=== PATIENT | female | born 1980 | race Caucasian/White ===

== ENCOUNTER 2017-04-04 06:25 | Emergency (ER) | payer MEDICAID ==
[~2017-04-04] VITALS: Ht 170.2 cm; Wt 54.5 kg
[2017-04-04 06:28] VITALS: BP 147/74; TEMP 98.2
[2017-04-04 08:18] VITALS: PULSE 95
== END 2017-04-04 08:19 | disposition home or self-care (01) ==
LOC: COL.ER 06:25
DX: J35.8 Other chronic diseases of tonsils and adenoids (principal); J02.9 Acute pharyngitis, unspecified; Z98.51 Tubal ligation status

== ENCOUNTER 2018-01-15 10:43 | Emergency (ER) | payer MEDICAID ==
[~2018-01-15] VITALS: Ht 167.6 cm; Wt 63.6 kg
[2018-01-15 10:58] VITALS: BP 134/83; TEMP 97.9
[2018-01-15] MEDS ORDERED: LIDODERM 5% PATC1 EA TP (11:14)
[2018-01-15] MEDS ORDERED: VISTARIL 2525 MG/CAP PO (11:14)
[2018-01-15 11:28] VITALS: PULSE 76
== END 2018-01-15 11:29 | disposition home or self-care (01) ==
LOC: COL.ER 10:43
DX: M25.511 Pain in right shoulder (principal); F41.9 Anxiety disorder, unspecified; Z98.51 Tubal ligation status; Z88.0 Allergy status to penicillin

== ENCOUNTER 2018-01-20 07:40 | Emergency (ER) | payer MEDICAID ==
[~2018-01-20] VITALS: Ht 167.6 cm; Wt 64.1 kg
[~2018-01-20 07:40] MED LIST: LIDODERM 5% PATC1 EA TP; VISTARIL 2525 MG/CAP PO
[2018-01-20] MEDS ORDERED: LEXAPRO 10MG10 MG PO (07:47)
[2018-01-20 08:07] LABS: BASO % 0.5 % (0.0-2.0); EOS # 0.1 (0.0-0.7); EOS % 0.8 % (0-4.0); GRAN # 4.1 (1.4-6.5); HEMATOCRIT 42.8 % (37.0-47.0); HEMOGLOBIN 14.6 g/dl (12.5-16.0); LYMPH # 2.5 (1.2-3.4); LYMPH % 33.9 % (20.0-51.0); MEAN CELL VOLUME 92 fl (80.0-100.0); MEAN CORPUSCULAR HEMOGLOBIN 31 pg (27.0-31.0); MEAN CORPUSCULAR HGB CONC 34 g/dl (33.0-37.0); MEAN PLATELET VOLUME 11.9 fl (7.4-10.4); MONO # 0.6 (0.1-0.6); MONO % 8.5 % (1.7-9.3); PLATELET COUNT 175 K/mm3 (130-400); RED BLOOD COUNT 4.67 M/mm3 (4.10-5.30); REDCELL DISTRIBUTION WIDTH-CV 12.4 % (11.5-14.5)
[2018-01-20 08:17] LABS: ALANINE AMINOTRANSFERASE 28 U/L (9-52); ALBUMIN 4.5 gm/dL (3.5-5.0); ALKALINE PHOSPHATASE 69 U/L (50-136); ANION GAP 13 mmol/L (7-16); AST,SGOT 18 U/L (15-37); BILIRUBIN,TOTAL 0.7 mg/dL (0.0-1.0); BLOOD UREA NITROGEN 11 mg/dL (7-17); CALCIUM 9.4 mg/dL (8.4-10.2); CARBON DIOXIDE 25 mmol/L (22-30); CHLORIDE 103 mmol/L (98-107); CREATININE, serum 0.75 mg/dL (0.52-1.25); GLUCOSE 112 mg/dL (74-106); LIPASE 129 U/L (23-300); POTASSIUM 3.8 mmol/L (3.4-5.0); SODIUM 141 mmol/L (137-145); TOTAL PROTEIN 8.4 gm/dL (6.4-8.2)
[2018-01-20 08:19] LABS: C-REACTIVE PROTEIN < 0.5 mg/dL (0.0-0.9)
[2018-01-20 08:53] LABS: TROPONIN-I < 0.012 ng/mL (0.000-0.034)
[2018-01-20] MEDS ORDERED: PROTONIX 40MG T40 MG PO (09:09)
[2018-01-20 09:31] VITALS: BP 103/99; PULSE 61; TEMP 97.6
== END 2018-01-20 09:40 | disposition home or self-care (01) ==
LOC: COL.ER 07:40
PROVIDERS: Emergency Medicine
DX: R07.89 Other chest pain (principal); F41.9 Anxiety disorder, unspecified; T43.225A Adverse effect of selective serotonin reuptake inhibitors, initial encounter; K21.9 Gastro-esophageal reflux disease without esophagitis; F32.9 Major depressive disorder, single episode, unspecified

== ENCOUNTER 2018-03-25 15:12 | Emergency (ER) | payer MEDICAID ==
[~2018-03-25] VITALS: Ht 167.6 cm; Wt 64.5 kg
[~2018-03-25 15:12] MED LIST changes: +LEXAPRO 10MG10 MG PO; +PROTONIX 40MG T40 MG PO
[2018-03-25 15:17] VITALS: BP 143/75; TEMP 98.2
[2018-03-25 16:44] VITALS: PULSE 80
== END 2018-03-25 16:44 | disposition home or self-care (01) ==
LOC: COL.ER 15:12
DX: S43.101A Unspecified dislocation of right acromioclavicular joint, initial encounter (principal); F12.90 Cannabis use, unspecified, uncomplicated; Z98.51 Tubal ligation status; Z88.0 Allergy status to penicillin; X58.XXXA Exposure to other specified factors, initial encounter

== ENCOUNTER 2018-08-18 12:28 | Emergency (ER) | payer MEDICAID ==
[~2018-08-18] VITALS: Ht 167.6 cm; Wt 57.4 kg
[2018-08-18 12:32] VITALS: BP 134/75; TEMP 98.4
[2018-08-18 14:04] VITALS: PULSE 54
== END 2018-08-18 14:10 | disposition home or self-care (01) ==
LOC: COL.ER 12:28
DX: M25.511 Pain in right shoulder (principal); F12.90 Cannabis use, unspecified, uncomplicated; Z98.51 Tubal ligation status
CPT/HCPCS: J1885

== ENCOUNTER 2019-01-21 12:01 | Day surgery (SDC) | payer MEDICAID ==
[~2019-01-21] VITALS: Ht 167.6 cm; Wt 59.2 kg
[2019-01-21 12:24] VITALS: BP 118/84; PULSE 61; TEMP 98
[2019-01-21] MEDS ORDERED: KLONOPIN 0.5MG0.5 MG PO (12:24)
[2019-01-21 13:30] VITALS: BP 126/97; PULSE 73; TEMP 98.5
--- NOTE | 2019-01-21 13:30 | NUR ---
Patient returned to [facility]. Able to ambulate to recliner without difficulty. Alert and oriented x4. Vital signs WNL. Denies any nausea or pain. States she would like juice and a muffin. Tolerating well. Call sheehan within reach, will continue to monitor.
[2019-01-21 13:45] VITALS: BP 120/93; PULSE 72
--- NOTE | 2019-01-21 13:45 | NUR ---
Patient tolerating food and drink well. Vital signs WNL. Dr. Arriaga in patients room discussing plan of care. Will continue to monitor.
[2019-01-21 14:00] VITALS: BP 111/77; PULSE 67
--- NOTE | 2019-01-21 14:00 | NUR ---
Patient states she is feeling good and ready to go home. Vital signs WNL. Discharge instructions reviewed. All questions answered. Instructed to follow up with PCP in regards to managing at home medications.
--- NOTE | 2019-01-21 14:24 | NUR ---
Patient ambulated down to lobby with out difficulty. To be driven home by .
[2019-01-22] MEDS ORDERED: PRIL40 PO (10:35)
[2019-01-22] MEDS ORDERED: ZOFRAN 4MG T4 MG/TAB PO (11:03)
== END 2019-01-21 14:24 | disposition home or self-care (01) ==
LOC: SDCO 12:01
DX: K21.9 Gastro-esophageal reflux disease without esophagitis (principal); K22.70 Barrett's esophagus without dysplasia; F41.9 Anxiety disorder, unspecified; Z83.79 Family history of other diseases of the digestive system
CPT/HCPCS: J2704; J7030

== ENCOUNTER 2019-01-22 10:22 | Emergency (ER) | payer MEDICAID ==
[~2019-01-22] VITALS: Ht 167.6 cm; Wt 59.5 kg
[~2019-01-22 10:22] MED LIST changes: +KLONOPIN 0.5MG0.5 MG PO
[2019-01-22 10:25] VITALS: TEMP 97.8
[2019-01-22] MEDS ORDERED: PRIL40 PO (10:35)
[2019-01-22] MEDS ORDERED: ZOFRAN 4MG T4 MG/TAB PO (11:03)
[2019-01-22 12:24] VITALS: BP 143/89; PULSE 62
== END 2019-01-22 12:24 | disposition home or self-care (01) ==
LOC: COL.ER 10:22
DX: G89.18 Other acute postprocedural pain (principal); R10.13 Epigastric pain; K21.9 Gastro-esophageal reflux disease without esophagitis; F32.9 Major depressive disorder, single episode, unspecified; F41.9 Anxiety disorder, unspecified; Z98.51 Tubal ligation status; Z88.0 Allergy status to penicillin

== ENCOUNTER 2023-07-28 20:27 | Emergency (ER) | payer SELFPAY ==
[~2023-07-28] VITALS: Ht 167.6 cm; Wt 59.8 kg
[~2023-07-28 20:27] MED LIST changes: +PRIL40 PO; +ZOFRAN 4MG T4 MG/TAB PO
[2023-07-28 20:37] VITALS: TEMP 98.4
[2023-07-28] MEDS ORDERED: CLEOCIN HCL300 MG PO (21:14)
[2023-07-28] MEDS ORDERED: NORCO 325 MG-51 TAB PO (21:14)
[2023-07-28 21:44] VITALS: BP 106/65; PULSE 59
== END 2023-07-28 21:48 | disposition home or self-care (01) ==
LOC: COL.ER 20:27
DX: N61.0 Mastitis without abscess (principal); Z88.0 Allergy status to penicillin

== ENCOUNTER 2023-09-04 08:42 | Emergency (ER) | payer SELFPAY ==
[~2023-09-04] VITALS: Ht 170.2 cm; Wt 59.1 kg
[~2023-09-04 08:42] MED LIST changes: +CLEOCIN HCL300 MG PO; +NORCO 325 MG-51 TAB PO
[2023-09-04 08:46] VITALS: TEMP 98.1
[2023-09-04 08:58] LABS: BASO # 0.1 K/mm3 (0.0-0.2); BASO % 0.6 % (0.0-2.0); EOS # 0.1 K/mm3 (0.0-0.7); EOS % 0.5 % (0.0-4.0); GRAN # 11.8 K/mm3 (1.4-6.5); GRAN % 78.9 % (42.2-75.2); HEMATOCRIT 44.3 % (37.0-47.0); HEMOGLOBIN 14.7 g/dl (12.5-16.0); LYMPH % 13.7 % (20.0-51.0); MEAN CELL VOLUME 94 fl (80.0-100.0); MEAN CORPUSCULAR HEMOGLOBIN 31 pg (27-31); MEAN CORPUSCULAR HGB CONC 33 g/dl (33.0-37.0); MEAN PLATELET VOLUME 12.3 fl (7.4-10.4); MONO # 0.9 K/mm3 (0.1-0.6); PLATELET COUNT 195 K/mm3 (130-400); RED BLOOD COUNT 4.72 M/mm3 (4.10-5.30); REDCELL DISTRIBUTION WIDTH-CV 13.2 % (11.5-14.5)
[2023-09-04 09:15] LABS: ALANINE AMINOTRANSFERASE 9 U/L (0-55); ALBUMIN 4.6 gm/dL (3.5-5.0); ALKALINE PHOSPHATASE 59 U/L (40-150); ANION GAP 13 mmol/L (7-16); AST,SGOT 13 U/L (5-34); BILIRUBIN,TOTAL 0.8 mg/dL (0.2-1.2); BLOOD UREA NITROGEN 9 mg/dL (7-19); CALCIUM 10.1 mg/dL (8.4-10.2); CARBON DIOXIDE 23 mmol/L (22-29); CHLORIDE 106 mmol/L (98-107); CREATININE, serum 0.87 mg/dL (0.57-1.11); GLUCOSE 111 mg/dL (70-99); POTASSIUM 3.4 mmol/L (3.5-4.5); SODIUM 142 mmol/L (136-145); TOTAL PROTEIN 8.4 gm/dL (6.2-8.1)
[2023-09-04 09:28] LABS: TROPONIN-I < 0.010 ng/mL (0.00-0.033)
[2023-09-04 10:58] LABS: COLLECTION METHOD CLEAN CATCH
[2023-09-04 11:20] LABS: PH 5.5 (5.0-8.5); URINE APPEARANCE Cloudy (CLEAR/HAZY); URINE COLOR Yellow (YELLOW); URINE GLUCOSE Negative (NEGATIVE); URINE KETONE TRACE (NEGATIVE); URINE PROTEIN(semi-quant) 3+ (NEGATIVE); URINE UROBILINOGEN 0.2 E.U/dL (0.2-1.0)
[2023-09-04 11:21] LABS: URINE BLOOD 3+ (NEGATIVE); URINE NITRATE Positive (NEGATIVE)
[2023-09-04 11:24] LABS: MUCOUS Present (NOT PRESENT); URINE BACTERIA Moderate /hpf (NONE SEEN); URINE RBC >50 /hpf (0-2)
[2023-09-04] MEDS ORDERED: MACROBID 1100 MG/CAP PO (11:45)
[2023-09-04] MEDS ORDERED: ZOFRAN ODT4 MG PO (11:45)
[2023-09-04] MEDS ORDERED: PEPCID 20MG TAB20 MG PO (11:45)
[2023-09-04 11:56] VITALS: BP 133/88; PULSE 66
== END 2023-09-04 11:58 | disposition home or self-care (01) ==
LOC: COL.ER 08:42
PROVIDERS: Emergency Medicine
DX: N39.0 Urinary tract infection, site not specified (principal); Z90.49 Acquired absence of other specified parts of digestive tract; Z88.0 Allergy status to penicillin
CPT/HCPCS: J1885; J2405; Q9967

== ENCOUNTER 2024-02-05 19:42 | Emergency (ER) | payer MEDICAID ==
[~2024-02-05] VITALS: Ht 172.7 cm; Wt 63.6 kg
[~2024-02-05 19:42] MED LIST changes: +MACROBID 1100 MG/CAP PO; +PEPCID 20MG TAB20 MG PO; +ZOFRAN ODT4 MG PO
[2024-02-05] MEDS ORDERED: LR 1,000 ML IV ONE (20:15)
[2024-02-05] MEDS ORDERED: droPERidol 2.5 MG/ML 2 ML VIAL IV ONE (20:15)
[2024-02-05] MEDS ORDERED: Pantoprazole 40 MG in NS 10 ML IV ONE (20:15)
[2024-02-05] MEDS ORDERED: diphenhydrAMINE 50 MG/ML 1 ML VIAL IV ONE (20:15)
[2024-02-05 20:28] LABS: BASO # 0.1 K/mm3 (0.0-0.2); BASO % 0.4 % (0.0-2.0); EOS # 0.1 K/mm3 (0.0-0.7); EOS % 0.9 % (0.0-4.0); GRAN # 7.8 K/mm3 (1.4-6.5); GRAN % 65.7 % (42.2-75.2); HEMATOCRIT 40.8 % (37.0-47.0); HEMOGLOBIN 13.9 g/dl (12.5-16.0); LYMPH # 3.1 K/mm3 (1.2-3.4); MEAN CELL VOLUME 92 fl (80.0-100.0); MEAN CORPUSCULAR HEMOGLOBIN 31 pg (27-31); MEAN CORPUSCULAR HGB CONC 34 g/dl (33.0-37.0); MEAN PLATELET VOLUME 12.2 fl (7.4-10.4); MONO # 0.8 K/mm3 (0.1-0.6); MONO % 6.7 % (1.7-9.3); PLATELET COUNT 191 K/mm3 (130-400); RED BLOOD COUNT 4.44 M/mm3 (4.10-5.30); REDCELL DISTRIBUTION WIDTH-CV 12.2 % (11.5-14.5)
[2024-02-05 20:48] LABS: ALBUMIN 4.1 g/dL (3.5-5.0); BILIRUBIN,TOTAL 0.4 mg/dL (0.2-1.2); C-REACTIVE PROTEIN 0.13 mg/dL (0.00-0.50); CALCIUM 10.1 mg/dL (8.4-10.2); CREATININE, serum 0.8 mg/dL (0.57-1.11); POTASSIUM 3.5 mEq/L (3.5-4.5); TOTAL PROTEIN 7.8 g/dl (6.2-8.1)
[2024-02-05 21:25] LABS: COLLECTION METHOD CLEAN CATCH
[2024-02-05 21:28] LABS: PH 7.5 (5.0-8.5); URINE APPEARANCE CLEAR (CLEAR/HAZY); URINE BLOOD NEGATIVE (NEGATIVE); URINE COLOR YELLOW (YELLOW); URINE GLUCOSE NEGATIVE (NEGATIVE); URINE KETONE 1+ (NEGATIVE); URINE NITRATE NEGATIVE (NEGATIVE); URINE PROTEIN(semi-quant) NEGATIVE (NEGATIVE); URINE UROBILINOGEN 0.2 E.U/dL (0.2-1.0)
[2024-02-05] MEDS ORDERED: PROTONIX 40MG T40 MG PO (21:28)
[2024-02-05] MEDS ORDERED: PHENERGAN 25 TA25 MG PO (21:28)
[2024-02-05] MEDS ORDERED: Home Promethazine 25 MG #2 TAB/PACK PO ONE (21:30)
[2024-02-05 21:45] VITALS: BP 113/70; PULSE 82; TEMP 97.7
== END 2024-02-05 21:45 | disposition home or self-care (01) ==
LOC: COL.ER 19:42
PROVIDERS: Family Medicine
DX: K29.70 Gastritis, unspecified, without bleeding (principal); Z90.49 Acquired absence of other specified parts of digestive tract; Z87.19 Personal history of other diseases of the digestive system
CPT/HCPCS: C9113; J1200; J1790; J7120

== ENCOUNTER 2024-05-07 13:56 | Day surgery (SDC) | payer MEDICAID ==
[~2024-05-07] VITALS: Ht 167.6 cm; Wt 43.3 kg
[~2024-05-07 13:56] MED LIST changes: +LR 1,000 ML IV SCH; +Ondansetron 4 MG/2 ML VIAL IV PRN; +PHENERGAN 25 TA25 MG PO
[2024-05-07 14:37] VITALS: BP 124/82; PULSE 65; TEMP 97.1
[2024-05-07] MEDS ORDERED: CARAFATE 1GM1 G PO (14:41)
[2024-05-07] MEDS ORDERED: Lidocaine PF 2% (20 MG/ML) 5 ML VIAL ONE (15:16)
[2024-05-07] MEDS ORDERED: Ondansetron 4 MG/2 ML VIAL ONE (15:18)
[2024-05-07 15:35] VITALS: BP 135/91; PULSE 62; TEMP 98
--- NOTE | 2024-05-07 15:35 | NUR ---
PATIENT AMBULATED TO CHAIR WITH STEADY GAIT, ASSIST OF 2. ALERT AND AWAKE. DENIES PAIN, NAUSEA AND SHORTNESS OF BREATH. BREATHING REGULAR AND UNLABORED ON ROOM AIR. SKIN WARM AND DRY. IV IN PLACE. NURSE HANDOFF COMPLETED IN ROOM. SEE CHART FOR VITAL SIGNS. PATIENT HAD APPLE JUICE AND PUSHPA CRACKERS. BOTH FOOD AND DRINK TOLERATED WELL, NO DYSPHAGIA.
[2024-05-07 15:45] VITALS: BP 135/90; PULSE 57
[2024-05-07 16:00] VITALS: BP 118/88; PULSE 56
[2024-05-07 16:09] VITALS: BP 121/84; PULSE 64
--- NOTE | 2024-05-07 16:18 | NUR ---
PATIENT AND SPOUSE SAID THEY BOTH MET WITH FOLLOWING THE PROCEDURE. 1606: DISCHARGE TEACHING COMPLETED WITH PRINTED EDUCATION AND INSTRUCTIONS SENT HOME WITH PATIENT. PATIENT VERBALIZED UNDERSTANDING OF TEACHING. 1608: PATIENT DENIES PAIN, NAUSEA AND SHORTNESS OF BREATH. IV REMOVED. GAUZE AND COBAN PLACED OVER SITE. 1618: PATIENT DISCHARGED HOME WITH [facility] [employer].
== END 2024-05-07 16:18 | disposition home or self-care (01) ==
LOC: SDCO 13:56
DX: K22.70 Barrett's esophagus without dysplasia (principal); K21.9 Gastro-esophageal reflux disease without esophagitis; K29.50 Unspecified chronic gastritis without bleeding; Z77.22 Contact with and (suspected) exposure to environmental tobacco smoke (acute) (chronic)
CPT/HCPCS: J2405; J2704; J7120

== ENCOUNTER 2024-06-19 19:02 | Emergency (ER) | payer MEDICAID ==
[~2024-06-19] VITALS: Ht 167.6 cm; Wt 59.1 kg
[~2024-06-19 19:02] MED LIST changes: +CARAFATE 1GM1 G PO; -LR 1,000 ML IV SCH; -Ondansetron 4 MG/2 ML VIAL IV PRN
[2024-06-19 19:08] VITALS: TEMP 98.2
[2024-06-19] MEDS ORDERED: Pantoprazole 40 MG in NS 10 ML IV ONE (19:30)
[2024-06-19] MEDS ORDERED: diphenhydrAMINE 50 MG/ML 1 ML VIAL IV ONE (19:30)
[2024-06-19] MEDS ORDERED: LR 1,000 ML IV ONE (19:30)
[2024-06-19] MEDS ORDERED: droPERidol 2.5 MG/ML 2 ML VIAL IV ONE (19:30)
[2024-06-19 19:34] LABS: BASO # 0.1 K/mm3 (0.0-0.2); BASO % 0.6 % (0.0-2.0); EOS # 0.1 K/mm3 (0.0-0.7); EOS % 0.5 % (0.0-4.0); GRAN # 7.1 K/mm3 (1.4-6.5); GRAN % 56.8 % (42.2-75.2); HEMATOCRIT 44.7 % (37.0-47.0); HEMOGLOBIN 14.8 g/dl (12.5-16.0); LYMPH # 4.3 K/mm3 (1.2-3.4); LYMPH % 34.7 % (20.0-51.0); MEAN CELL VOLUME 92 fl (80.0-100.0); MEAN CORPUSCULAR HEMOGLOBIN 31 pg (27-31); MEAN CORPUSCULAR HGB CONC 33 g/dl (33.0-37.0); MEAN PLATELET VOLUME 12.1 fl (7.4-10.4); MONO # 0.9 K/mm3 (0.1-0.6); MONO % 7.2 % (1.7-9.3); PLATELET COUNT 244 K/mm3 (130-400); RED BLOOD COUNT 4.84 M/mm3 (4.10-5.30); REDCELL DISTRIBUTION WIDTH-CV 12.8 % (11.5-14.5)
[2024-06-19 19:45] LABS: ALANINE AMINOTRANSFERASE 16 U/L (0-55); ALBUMIN 4.8 g/dL (3.5-5.0); ALKALINE PHOSPHATASE 78 U/L (40-150); ANION GAP 18 mmol/L (7-16); AST,SGOT 19 U/L (5-34); BILIRUBIN,TOTAL 0.6 mg/dL (0.2-1.2); BLOOD UREA NITROGEN 10 mg/dL (7-19); CALCIUM 10.6 mg/dL (8.4-10.2); CHLORIDE 103 mEq/L (98-107); CREATININE, serum 0.94 mg/dL (0.57-1.11); GLUCOSE 134 mg/dL (70-99); SODIUM 139 mEq/L (136-145); TOTAL PROTEIN 8.7 g/dl (6.2-8.1)
[2024-06-19 19:50] LABS: POTASSIUM 2.8 mEq/L (3.5-4.5); TROPONIN-I < 0.010 ng/mL (0.00-0.033)
[2024-06-19] MEDS ORDERED: Magnesium Sulfate 4% 50 ML IV ONE (20:00)
[2024-06-19 20:02] VITALS: BP 134/90; PULSE 77
[2024-06-19 20:03] LABS: COLLECTION METHOD CLEAN CATCH
[2024-06-19 20:08] LABS: PH 7.5 (5.0-8.5); URINE APPEARANCE CLEAR (CLEAR/HAZY); URINE BLOOD NEGATIVE (NEGATIVE); URINE COLOR YELLOW (YELLOW); URINE GLUCOSE NEGATIVE (NEGATIVE); URINE KETONE 1+ (NEGATIVE); URINE NITRATE NEGATIVE (NEGATIVE); URINE PROTEIN(semi-quant) NEGATIVE (NEGATIVE); URINE UROBILINOGEN 0.2 E.U/dL (0.2-1.0)
[2024-06-19 20:17] LABS: TRICYCLIC ANTIDEPRESS URINE NEGATIVE (NEGATIVE)
[2024-06-19 20:58] LABS: TSH w REFLEX 2.895 uIU/mL (0.350-4.940)
== END 2024-06-19 20:08 | disposition left against medical advice (07) ==
LOC: COL.ER 19:02
PROVIDERS: Emergency Medicine
DX: R07.89 Other chest pain (principal); R06.02 Shortness of breath; E87.6 Hypokalemia; Z87.19 Personal history of other diseases of the digestive system
CPT/HCPCS: J1200; J1790; J2470; J7120

== ENCOUNTER 2024-07-07 09:30 | Emergency (ER) | payer MEDICAID ==
[~2024-07-07] VITALS: Ht 167.6 cm; Wt 63.6 kg
[2024-07-07 09:34] VITALS: TEMP 97.8
[2024-07-07] MEDS ORDERED: Ondansetron 4 MG/2 ML VIAL IV ONE (10:00)
[2024-07-07] MEDS ORDERED: NS 1,000 ML IV ONE (10:00)
[2024-07-07] MEDS ORDERED: Ketorolac 15 MG/ML VIAL IV ONE (10:00)
[2024-07-07 10:23] LABS: BASO % 0.5 % (0.0-2.0); EOS % 0.4 % (0.0-4.0); GRAN # 5.4 K/mm3 (1.4-6.5); GRAN % 68.7 % (42.2-75.2); HEMATOCRIT 41.4 % (37.0-47.0); HEMOGLOBIN 13.6 g/dl (12.5-16.0); LYMPH # 1.8 K/mm3 (1.2-3.4); LYMPH % 22.6 % (20.0-51.0); MEAN CELL VOLUME 94 fl (80.0-100.0); MEAN CORPUSCULAR HEMOGLOBIN 31 pg (27-31); MEAN CORPUSCULAR HGB CONC 33 g/dl (33.0-37.0); MEAN PLATELET VOLUME 11.4 fl (7.4-10.4); MONO # 0.6 K/mm3 (0.1-0.6); MONO % 7.5 % (1.7-9.3); PLATELET COUNT 262 K/mm3 (130-400); RED BLOOD COUNT 4.43 M/mm3 (4.10-5.30)
[2024-07-07 10:40] LABS: ALBUMIN 4.2 g/dL (3.5-5.0); BILIRUBIN,TOTAL 0.5 mg/dL (0.2-1.2); CALCIUM 10.1 mg/dL (8.4-10.2); CREATININE, serum 0.83 mg/dL (0.57-1.11); POTASSIUM 3.6 mEq/L (3.5-4.5); TOTAL PROTEIN 7.6 g/dl (6.2-8.1)
[2024-07-07 11:32] VITALS: BP 124/79; PULSE 62
== END 2024-07-07 11:35 | disposition home or self-care (01) ==
LOC: COL.ER 09:30
PROVIDERS: Personal Emergency Response Attendant
DX: R19.7 Diarrhea, unspecified (principal); R11.0 Nausea
CPT/HCPCS: J1885; J2405; J7030